=== PATIENT | female | born 1985 | race Caucasian/White ===

== ENCOUNTER 2017-04-12 07:07 | Outpatient (CLI) | payer MEDICAID | END 2017-04-12 07:08 | disposition home or self-care (01) | LOC: BICULT 07:07 | PROVIDERS: ATTEND Family Medicine | DX: Z34.92 Encounter for supervision of normal pregnancy, unspecified, second trimester (principal); Z3A.18 18 weeks gestation of pregnancy | CPT/HCPCS: 76805 ==

== ENCOUNTER 2017-07-10 17:11 | Day surgery (SDC) | payer OTHER ==
[2017-07-10 17:52] VITALS: BP 137/73; TEMP 99; BMI 42.3
[2017-07-10] MEDS ORDERED: FLU VACC QS2017-18 36 mo. & older 0.5 ML SYRINGE IM ONE (18:00)
--- NOTE | 2017-07-10 22:53 | PRG ---
DATE OF SERVICE: 07/10/2017 PRIMARY AFTERNOON NANNY: Tahira Ramires M.D. CHIEF COMPLAINT: Abdominal pains. HISTORY OF PRESENT ILLNESS: The patient is a 32-year-old G6, P2 female with an intrauterine pregnanc y at 31 weeks and 2 days who is followed by Dr. Tahira Ramires. The patient reports that she is present ing because she has been feeling uterine contractions today. The patient admits that they have been feeling nearly resolved since presenting to Labor and Delivery, but was concerned because of the freq uency of them throughout the day. The patient reports that she has had diarrhea in the last 24 hours , which she believes she got from her daughter who was sick with diarrhea earlier in the week. The p atient reports that she is taking p.o. without too much trouble. Denies any significant nausea or vo miting. The patient denies fever. She denies vaginal bleeding or leakage of fluid or change in disc harge. PAST MEDICAL HISTORY: Asthma as a child, gestational diabetes with this current . PAST SURGICAL HISTORY: She has had two prior C-sections. ALLERGIES: LATEX. MEDICATIONS: vitamins. SOCIAL HISTORY: Denies drug, alcohol, or tobacco use. OBSTETRIC HISTORY: The patient has had 2 term deliveries. REVIEW OF SYSTEMS: Per HPI. OB LABS: RPR nonreactive, GC chlamydia negative. She is rubella immune, HIV nonreactive, hepatitis B surface antigen negative. Blood type O positive. PHYSICAL EXAMINATION: VITAL SIGNS: Blood pressure is 132/80, heart rate of 80, respiratory rate of 20, satting 99% on room air, temperature 99. GENERAL: She appears to be in no acute distress. She is alert and oriented, cooperative and pleasan t to interact with. HEENT: Head is normocephalic, atraumatic. LUNGS: Clear to auscultation bilaterally. HEART: Has a regular rate and rhythm. The patient has no CVA tenderness, no vertebral tenderness to palpation. ABDOMEN: Soft, gravid, nontender. EXTREMITIES: Nontender, nonedematous. Cervix is closed, thick and high. heart tracing performed for abdominal pain. Fetus noted to be in the 120s with moderate long-t erm variability, positive accelerations, no decelerations. Tocometer showing some irritability, but no contraction pattern of distinction and felt very infrequently by the patient at this time. ASSESSMENT AND PLAN: The patient is a 32-year-old female G6, P2 with an intrauterine at 31 weeks who presented for abdominal pains. The patient has no evidence of labor at this time. She villanueva s had symptoms consistent with gastroenteritis which may be making her irritable. The patient has be en encouraged to stay hydrated. She has been given labor precautions. The patient has an ap pointment and has been recommended to keep her next scheduled appointment with Dr. Tahira Ramires.
== END 2017-07-10 18:35 | disposition home or self-care (01) ==
LOC: L&D/OP 17:11 → SDC/OP 17:11 → L&D/OP 18:35
PROVIDERS: ATTEND Family Medicine
DX: O99.89 Other specified diseases and conditions complicating pregnancy, childbirth and the puerperium (principal); R10.9 Unspecified abdominal pain; O24.419 Gestational diabetes mellitus in pregnancy, unspecified control; O99.52 Diseases of the respiratory system complicating childbirth; J45.909 Unspecified asthma, uncomplicated; Z3A.31 31 weeks gestation of pregnancy; Z79.82 Long term (current) use of aspirin; Z79.899 Other long term (current) drug therapy; Z91.040 Latex allergy status; Z98.891 History of uterine scar from previous surgery
CPT/HCPCS: 99282

== ENCOUNTER 2017-08-14 15:57 | Day surgery (SDC) | payer OTHER ==
[2017-08-14 16:43] VITALS: BMI 44.4
[2017-08-14 16:44] VITALS: BP 144/82; TEMP 97.7
[2017-08-14 17:55] LABS: Collection Duration 24 hrs; Urine Total Volume 1250 mL (600-1600)
[2017-08-14 18:27] LABS: 24 Hr Creatinine 1396.63 mg/24 hr (710-1650); Creatinine, Urine 111.73 mg/dL (47-110)
[2017-08-14 18:29] LABS: Protein - 24 Hr 250 mg/24 hr (Less than 300); Protein, Urine 20 mg/dL (1-14)
--- NOTE | 2017-08-14 19:48 | SS ---
DATE OF SHORT STAY: 08/14/2017 HOSPITAL COURSE: Thu is a 32-year-old white female patient G5, P 2-1-0-1-0-2 at 35 weeks and 6 days gestation, who presented to Labor and Delivery after being discharged from a 23-hour observation stay at [facility] in [place]. The patient has a history of full-term delivery wit h PIH and failure to progress, followed by a repeat section with PIH during that f ollowed by vaginal induction for 18-week IUFD, involved in this by myself with recent diagn osis of gestational hypertension. The patient had been monitoring her blood pressures at home and no ariel that she had a systolic in the 160s while she was visiting family in [place]. Notified the docto r on-call 2 days prior and recommended evaluation. The patient presented to [facility] in [facility] where she was admitted overnight. She received IM betamethasone x2 doses as well as laboratory studies and observation. I spoke earlier today with Dr. Kamran Stanton who was the attending community education coordinator. H e stated the patient was stable. Her blood pressures were systolic 130-160. CBC and comp met panel were normal. She was asymptomatic. We discussed her care and due to the patient's desire to [facility] care in [place], recommendations to discharge home and I recommended that she come to Labor and [facility] for evaluation. On initial presentation, noted that blood pressure was in the 130s-140s/80s. Th e patient had no symptoms. DTRs 2+. No edema. FHTs in the 140s with a reactive strip and no other complaints. The patient was observed approximately 2 hours. She was able to complete her 24-hour ur ine collection for creatinine clearance and total protein while here at the hospital and this was sub sequently sent to the laboratory, and she was discharged home in good condition. She has an appointm ent to see me in 2 days. Precautions were given to the patient to present to Labor and Delivery and call the on-call doctor for any further problems.
== END 2017-08-14 17:43 | disposition home or self-care (01) ==
LOC: L&D/OP 15:57
PROVIDERS: ATTEND Family Medicine
DX: O13.3 Gestational [pregnancy-induced] hypertension without significant proteinuria, third trimester (principal); Z3A.35 35 weeks gestation of pregnancy; Z79.82 Long term (current) use of aspirin; Z79.899 Other long term (current) drug therapy; Z91.040 Latex allergy status
CPT/HCPCS: 82570; 84156; 99283

== ENCOUNTER 2017-08-23 18:44 | Inpatient (IN) | payer OTHER ==
[2017-08-23 19:45] VITALS: BMI 43.4
[2017-08-23] MEDS: Lactated Ringer's 1,000 ML IV SCH ×2 (19:50→22:33)
[2017-08-23 20:15] LABS: #Eosinphils 0.1 thou/uL (0.0-0.7); #Neutrophils 12.5 thou/uL (1.40-6.50); %Basophils 0.2 % (0.0-1.0); %Eosinophils 0.8 % (0.0-10.0); %Lymphocytes 12.7 % (21.0-51.0); %Monocytes 6.4 % (0.0-10.0); %Neutrophils 79.9 % (42.0-75.0); Hemoglobin 13.5 g/dL (12.0-16.0); Mean Corpuscular HGB CONC 35.2 g/dL (32.0-36.0); Mean Corpuscular Hemoglobin 32.3 pg (27.0-31.0); Mean Corpuscular Volume 91.8 fl (81.0-99.0); Mean Platelet Volume 9.8 fL (7.4-10.4); Platelet Count 184 thou/uL (130-400); RBC Distribution Width 13.1 % (11.5-14.5); Red Blood Cell (RBC) Count 4.18 mill/uL (4.20-5.40); White Blood Cell (WBC) Count 15.6 thou/uL (4.8-10.8)
[2017-08-23 20:17] LABS: Bilirubin Small (Negative); Blood, Urine Negative (Negative); Clarity CLEAR (Clear); Glucose, Urine (Dipstick) Negative (Negative); Leukocyte Negative (Negative); Nitrite Negative (Negative); Protein, Urine (Dipstick) 100 mg/dL (Neg-Trace); Specific Gravity, Urine 1.033 (1.002-1.036); Urobilinogen 0.2 mg/dL (0.2-1.0)
[2017-08-23 20:19] LABS: Bacteria/HPF None Seen HPF (None Seen); WBC/HPF 0-3 HPF (0-3)
[2017-08-23 20:24] LABS: Pathc Cast-AUWi Flag 3.92 (0-2.49)
[2017-08-23 20:34] LABS: Crystals/HPF None Seen HPF (Negative); Other Casts/LPF None Seen LPF (0-3 Hyaline); Oval Fat Bodies/HPF None Seen HPF (None Seen); Renal Epithelial None Seen HPF (0-3); Transitional Epithelial NONE SEEN HPF (0-3); Trichomonas/HPF None Seen HPF (None Seen)
[2017-08-23 20:53] LABS: ALT (SGPT) 16 U/L (8-55); AST (SGOT) 21 U/L (5-34); Albumin 3.8 g/dL (3.5-5.0); Alkaline Phosphatase 124 U/L (40-150); Anion Gap 18 mmol/L (10-20); BUN (Urea Nitrogen) 16 mg/dL (7.0-18.7); Bilirubin, Total 0.6 mg/dL (0.2-1.2); Calc. Creatinine Clearance 259 mL/min (70-130); Calcium 9.5 mg/dL (7.8-10.44); Carbon Dioxide 17 mmol/L (22-29); Chloride 106 mmol/L (98-107); Estimated GFR-MDRD Greater than 90; Globulin 2.8 g/dL (2.4-3.5); Glucose 84 mg/dL (70-105); Potassium 4.4 mmol/L (3.5-5.1); Protein, Total 6.6 g/dL (6.0-8.3); Sodium 137 mmol/L (136-145)
[2017-08-23] MEDS ORDERED: Ondansetron HCl/PF 4 MG/2 ML Vial IVP PRN (21:34)
[2017-08-23] MEDS ORDERED: Zolpidem Tartrate 5 MG TAB PO PRN (21:34)
[2017-08-23] MEDS ORDERED: Promethazine HCl 25 MG/ML VIAL IM PRN (21:34)
[2017-08-23] MEDS ORDERED: Bicitra 30 ML UDCUP PO SCH (21:45)
[2017-08-23] MEDS ORDERED: CEFAZOLIN/Water 2 GM/20 ML SYRINGE SLOW IVP SCH (21:45)
[2017-08-23 22:16] LABS: Creatinine, Urine 292.3 mg/dL (47-110)
[2017-08-23 22:43] LABS: Syphilis Antibody Nonreactive (Nonreactive); Syphilis Antibody Index 0.03 S/CO (<1.00 Non-Reactive)
[2017-08-23 23:24] LABS: HBSAg Index 0.23 S/CO (0-0.99); Hep B Surf Ag Non-Reactive S/CO (NonReactive)
[2017-08-24] MEDS: Lactated Ringer's 1,000 ML IV SCH ×2 (06:43→15:15)
[2017-08-24] MEDS ORDERED: Morphine PF 1 MG/ML SYR ONE (07:12)
[2017-08-24] MEDS ORDERED: Bupivacaine 0.75% W/DEXTROSE 8.25% 2 ML AMP ONE (07:13)
[2017-08-24] MEDS ORDERED: Oxytocin 10 UNITS/ML VIAL ONE ×2 (07:13→07:52)
[2017-08-24] MEDS ORDERED: PHENYLEPHRINE-NS 100 MCG/ML 10 ML SYRINGE ONE (07:13)
[2017-08-24] MEDS ORDERED: Lidocaine 1% PF 5 ML VIAL ONE (07:21)
[2017-08-24] MEDS ORDERED: HYDROmorphone 2 MG/ML VIAL SLOW IVP PRN (08:05)
[2017-08-24] MEDS ORDERED: Promethazine HCl 25 MG SUPP PR PRN (08:05)
[2017-08-24] MEDS ORDERED: Eucerin (Mineral Oil/Petrolatum,White) 30 gm Jar TOP PRN (08:05)
[2017-08-24] MEDS ORDERED: Ondansetron HCl/PF 4 MG/2 ML Vial IVP PRN ×3 (08:05→13:29)
[2017-08-24] MEDS ORDERED: Naloxone HCl 0.4 mg/ml Vial IVP PRN ×2 (08:05)
[2017-08-24] MEDS ORDERED: Meperidine HCl/PF 25 MG/ML VIAL SLOW IVP PRN (08:05)
[2017-08-24] MEDS ORDERED: Promethazine HCl 25 MG/ML VIAL IM PRN (08:05)
[2017-08-24] MEDS ORDERED: Ketorolac Tromethamine 30 MG/ML VIAL IVP SCH (08:15)
[2017-08-24] MEDS ORDERED: Communication Order-Pharmacy FS SCH (08:15)
[2017-08-24] MEDS ORDERED: Ketorolac Tromethamine 30 MG/ML VIAL ONE (09:30)
[2017-08-24] MEDS ORDERED: Naloxone HCl 0.4 mg/ml Vial ONE (09:30)
[2017-08-24] MEDS ORDERED: diphenhydrAMINE 50 MG/ML VIAL ONE (09:30)
[2017-08-24] MEDS: Ketorolac Tromethamine 30 MG/ML VIAL IVP PRN ×2 (09:33→20:20)
[2017-08-24] MEDS: diphenhydrAMINE 50 MG/ML VIAL IVP PRN ×2 (09:43→15:05)
--- NOTE | 2017-08-24 09:46 | OP ---
DATE OF PROCEDURE: 08/24/2017 PREOPERATIVE DIAGNOSES: A 37-week intrauterine with previous section and pregnanc y induced hypertension. POSTOPERATIVE DIAGNOSES: A 37-week intrauterine with previous section and pregnan cy induced hypertension. Status post delivery. PROCEDURE: Repeat low transverse section. SURGEON: Tahira Ramires M.D. PREVENTION RN: Carlos Ramires M.D. ANESTHESIA: Spinal anesthetic. COMPLICATIONS: None. PROCEDURE IN DETAIL: After adequate spinal anesthetic, the patient was placed in the supine position . A Pacheco catheter was placed. The abdomen was prepped and draped in the usual sterile technique. A Pfannenstiel incision was made through the old scar. Subcutaneous tissue opened with sharp dissect ion. Fascia opened with sharp dissection. Peritoneum opened with sharp and blunt dissection. It wa s noted that the abdomen was filled with a gravid uterus. A large Juvencio O was placed without diffic ulty and a low transverse incision was made on the uterus. Membranes were ruptured. Clear fluid was encountered and a viable female infant was delivered from vertex presentation without difficulty. I nfant breathed and cried spontaneously after approximately 30 seconds. The cord was clamped and cut and noted the baby had been dried on the sterile field and was handed to care of the neonatolo gy team. Cord blood was obtained. The placenta was delivered manually, appeared intact. Hysterotom y edges were grasped with ring forceps. An additional ring forceps was used to dilate the cervix and this ring forcep was taken external to the sterile field. A wet lap was used to wipe clean the uter us and the uterus was then closed in continuous fashion using 0 Monocryl. Hemostasis was adequate i nitially, but then noted some small oozing from the lateral edges. An additional jlohud-li-yhqge was placed with 2-0 chromic continuous small amount of bleeding. FloSeal was applied and bleeding compl etely resolved. Juvencio O retractor had been removed and the peritoneal edges were grasped with ring forceps. This layer was then closed in continuous fashion using 2-0 chromic and the fascia was then closed in continuous fashion using 0 Vicryl. Sponge and instrument counts were correct. A few bleed ers were cauterized on the subcutaneous tissue after irrigation and a running layer continuous of 2-0 plain was used to approximate the subcutaneous tissue. The skin was then closed using gladis. The patient tolerated the procedure well to go to the recovery room in good condition. Noted the baby i s a viable female infant, weight 8 pounds 4 ounces, Apgars 8 at 1 minute, 8 at 5 minutes, to go to [place] [id number] nursery due to some mild hypoxemia.
[2017-08-24] MEDS ORDERED: Ferrous Sulfate 325 MG TAB PO SCH ×2 (13:29→13:45)
[2017-08-24] MEDS ORDERED: Docusate Calcium (SURFAK) 240 MG CAP PO SCH ×2 (13:29→13:45)
[2017-08-24] MEDS ORDERED: Acetaminophen 325 MG TAB PO PRN (13:29)
[2017-08-24] MEDS ORDERED: Lanolin Ointment 7 GM TUBE TOP PRN (13:29)
[2017-08-24] MEDS ORDERED: Prenatal Vitamin 1 TAB PO SCH ×2 (13:29→13:45)
[2017-08-24] MEDS ORDERED: Bisacodyl 10 MG SUPP PR PRN (13:29)
[2017-08-24] MEDS: Naloxone HCl 0.4 mg/ml Vial IV PRN ×2 (19:57→20:19)
[2017-08-24] MEDS: Docusate Calcium (SURFAK) 240 MG CAP PO SCH (19:58)
[2017-08-24] MEDS: Ferrous Sulfate 325 MG TAB PO SCH (22:51)
[2017-08-24] MEDS ORDERED: diphenhydrAMINE 25 MG CAP PO PRN (22:53)
[2017-08-25] MEDS: HYDROcodone/Acetaminophen 5/325 mg Tablet PO PRN ×3 (04:35→12:53)
[2017-08-25 05:07] LABS: Hemoglobin 11.2 g/dL (12.0-16.0); Mean Corpuscular HGB CONC 34.2 g/dL (32.0-36.0); Mean Corpuscular Hemoglobin 31.5 pg (27.0-31.0); Mean Corpuscular Volume 92.2 fl (81.0-99.0); Mean Platelet Volume 9.9 fL (7.4-10.4); Platelet Count 142 thou/uL (130-400); Red Blood Cell (RBC) Count 3.56 mill/uL (4.20-5.40); White Blood Cell (WBC) Count 11.6 thou/uL (4.8-10.8)
[2017-08-25] MEDS: Ferrous Sulfate 325 MG TAB PO SCH ×2 (07:22→21:28)
[2017-08-25] MEDS: Prenatal Vitamin 1 TAB PO SCH (08:38)
[2017-08-25] MEDS: Docusate Calcium (SURFAK) 240 MG CAP PO SCH ×2 (08:41→21:22)
[2017-08-25] MEDS: Simethicone Chewable 80 MG TAB PO PRN ×2 (12:53→21:25)
[2017-08-25] MEDS: Acetaminophen/Codeine 30-300mg Tablet PO PRN ×2 (17:25→21:25)
[2017-08-26] MEDS: Acetaminophen/Codeine 30-300mg Tablet PO PRN ×3 (02:40→16:05)
[2017-08-26] MEDS: Ferrous Sulfate 325 MG TAB PO SCH (07:38)
--- NOTE | 2017-08-26 07:49 | PDOC.PP ---
Post Progress Note Post Day #: 2 Subjective: Doing well. Awaiting BM but otherwise without complaints. PO intake tolerated: yes Flatus: yes Ambulation: yes Vital Signs (12 hours) Temp Pulse Resp BP Pulse Ox 08/26/17 00:00 97.8 F 82 20 153/85 H 08/25/17 20:00 97.9 F 86 20 135/82 98 Weight Weight 277 lb - Physical Examination Respiratory: non-labored breathing Abdominal: lochia (normal), no distention, appropriately TTP Skin: CS incision dry & intact, no rash Neurological: no gross focal deficits Psychiatric: A&Ox3, normal affect Result Diagrams: 08/25/17 04:54 08/23/17 20:09 Additional Labs: Post Labs Blood Type A POSITIVE 08/23/17 20:10 Hep Bs Antigen Non-Reactive S/CO (NonReactive) 08/23/17 20:09 (1) delivery delivered Code(s): O82 - ENCOUNTER FOR DELIVERY WITHOUT INDICATION Status: Acute (2) PIH ( induced hypertension) Code(s): O13.9 - GESTATIONAL HTN W/O SIGNIFICANT PROTEINURIA, UNSP TRIMESTER Status: Acute - Assessment/Plan BPs mostly normal with occasional mild range. Continue to monitor until tomorrow. Likely d/c in AM.
[2017-08-26] MEDS: Docusate Calcium (SURFAK) 240 MG CAP PO SCH (09:14)
[2017-08-26] MEDS: Prenatal Vitamin 1 TAB PO SCH (09:14)
[2017-08-26 09:49] VITALS: BP 139/89; TEMP 98
--- NOTE | 2017-08-26 16:02 | PDOC.EVN ---
Event Note - Event Note Event Note: Wants to go home. Tolerating diet, ambulating. VSS, afebrile. Scripts have been called in by Dr. Ramires. Plan; DC home, f/u with Dr. Ramires for staple removal. Precautions given.
== END 2017-08-26 16:49 | disposition home or self-care (01) | DRG 766 ==
LOC: L&D 18:44 → 3SW 08-24 13:12
PROVIDERS: ADMIT Family Medicine; ATTEND Family Medicine
PROC: 10D00Z1 Extraction of Products of Conception, Low, Open Approach (ICD-10-PCS; principal; 2017-08-24)
DX: O34.211 Maternal care for low transverse scar from previous cesarean delivery (principal); O13.4 Gestational [pregnancy-induced] hypertension without significant proteinuria, complicating childbirth; O24.420 Gestational diabetes mellitus in childbirth, diet controlled; Z3A.37 37 weeks gestation of pregnancy; Z37.0 Single live birth; N85.8 Other specified noninflammatory disorders of uterus
CPT/HCPCS: 36415; 51702; 80053; 81001; 82570; 84156; 85025; 85027; 86780; 86850; 86900; 86901; 87340; A4216; J1200; J1885; J2001; J2274; J2310; J2590; J3490